=== PATIENT | male | born 1965 | race Native Hawaiian/Other Pacific Islander ===

== ENCOUNTER 2021-06-14 23:40 | Inpatient (IN) | payer MEDICAID ==
[~2021-06-14] VITALS: Ht 193 cm; Wt 185.0 kg
[2021-06-15] MEDS ORDERED: ACETAMINOPHEN 500 MG TAB PO ONE (00:15)
[2021-06-15] MEDS ORDERED: SODIUM CHLORIDE 0.9% 1,000 ML IV ONE ×3 (00:15→06:15)
[2021-06-15] MEDS ORDERED: SODIUM CHLORIDE 0.9% 500 ML IV ONE (00:15)
[2021-06-15] MEDS ORDERED: PIPERACILLIN-TAZO 4.5GM 100 ML IV ONE (00:15)
[2021-06-15 00:27] LABS: Basophils # (auto) 0.1 10 ^3/uL (0-0.2); Eosinophils # (auto) 0 10 ^3/uL (0-0.8); Hemoglobin 13.2 g/dL (13.5-17.5); Lymphocytes # (auto) 0.2 10 ^3/uL (0.4-5.4); Red Cell Distribution Width 14.5 % (11.8-14.3)
[2021-06-15 00:29] LABS: Eosinophils % (auto) 0.4 % (0.0-7.0); Hematocrit 38.8 % (41.0-53.0); Lymphocytes % (auto) 2.4 % (10.0-50.0); Mean Corpuscular Hemoglobin 26.2 pg (28.0-32.0); Mean Corpuscular Hgb Conc. 34.1 g/dL (32.0-36.0); Mean Corpuscular Volume 76.9 fL (80.0-100.0); Monocytes # (auto) 0.1 10 ^3/uL (0-1.3); Monocytes % (auto) 1.4 % (0.0-12.0); Neutrophils % (auto) 94.8 % (37.0-80.0); Red Blood Cells 5.05 10^6/uL (4.5-5.90); White Blood Cell 7.4 10^3/uL (4.4-10.8)
[2021-06-15] MEDS ORDERED: VANCOMYCIN 1GM/250ML 250 ML IV ONE ×3 (00:30)
[2021-06-15 00:45] LABS: Calcium 8.4 mg/dL (8.5-10.1)
[2021-06-15 00:48] LABS: Albumin 2.6 g/dL (3.4-5.0); BUN/Creatinine Ratio 11.7
[2021-06-15 00:53] LABS: Bilirubin, Total 0.6 mg/dL (0.2-1.0)
[2021-06-15 01:09] LABS: Lactic Acid w/Reflex 4.2 mmol/L (0.4-2.0)
[2021-06-15] MEDS ORDERED: HEPARIN SODIUM (PORCINE) 5000 UNITS/ML 1ML VIAL IV ONE ×2 (01:15→11:15)
[2021-06-15] MEDS ORDERED: HEPARIN DRIP/D5W 100UNITS/ML 250 ML IV SCH ×3 (01:15→11:15)
[2021-06-15 01:42] LABS: INR 1.07 (0.9-1.15)
[2021-06-15] MEDS: SODIUM CHLORIDE 0.9% 1,000 ML IV SCH ×3 (02:00→15:00)
[2021-06-15] MEDS ORDERED: VANCOMYCIN PER PHARMACY 0 MG IV SCH (02:15)
[2021-06-15] MEDS: CARVEDILOL 3.125 MG TAB PO SCH ×3 (02:30→22:00)
[2021-06-15] MEDS ORDERED: MORPHINE SULFATE INJECTION 2 MG/ML SYRG IV PRN (02:30)
[2021-06-15] MEDS ORDERED: CLOPIDOGREL 300 MG TAB PO ONE (02:30)
[2021-06-15] MEDS ORDERED: MORPHINE SULFATE 4 MG/ML SYR/VIAL IV PRN (02:30)
[2021-06-15] MEDS ORDERED: ATORVASTATIN 20 MG TAB PO ONE (02:30)
[2021-06-15] MEDS ORDERED: DEXTROSE (50%) 50ML SYRG IV PRN (02:30)
[2021-06-15] MEDS ORDERED: InsuLIN REG 1unit/0.01ml Soln (100units/ml) IV ONE ×2 (02:30→04:30)
[2021-06-15] MEDS ORDERED: NITROGLYCERIN 0.4 MG SL TAB SL PRN ×2 (02:30)
[2021-06-15 03:40] LABS: CRP High Sensitivity 13.1 mg/dL (< 0.3)
[2021-06-15] MEDS ORDERED: CEFEPIME 1 GM in SODIUM CHL 0.9% 50 ML IV SCH (06:00)
[2021-06-15] MEDS: INSULIN LANTUS (GLARGINE) 1 /0.01ml (100units/ml) SC SCH ×2 (06:30→22:00)
[2021-06-15] MEDS: InsuLIN REG 1unit/0.01ml Soln (100units/ml) SC SCH ×4 (07:00→22:00)
[2021-06-15] MEDS: ACCU-CHEK COMFORT CURVE STRIP VI SCH ×4 (07:00→22:00)
[2021-06-15 08:07] LABS: Eosinophils # (auto) 0 10 ^3/uL (0-0.8); Eosinophils % (auto) 0.1 % (0.0-7.0); Lymphocytes # (auto) 1.1 10 ^3/uL (0.4-5.4); Mean Corpuscular Hemoglobin 26.4 pg (28.0-32.0)
[2021-06-15 08:10] LABS: Basophils # (auto) 0 10 ^3/uL (0-0.2); Basophils % (auto) 0.1 % (0.0-2.0); Hematocrit 35.1 % (41.0-53.0); Hemoglobin 11.8 g/dL (13.5-17.5); Lymphocytes % (auto) 7.9 % (10.0-50.0); Mean Corpuscular Hgb Conc. 33.6 g/dL (32.0-36.0); Monocytes # (auto) 1.1 10 ^3/uL (0-1.3); Monocytes % (auto) 7.7 % (0.0-12.0); Neutrophils # (auto) 11.9 10 ^3/uL (1.6-8.6); Neutrophils % (auto) 84.2 % (37.0-80.0); Nucleated Red Blood Cells % 0.1 %; Red Blood Cells 4.46 10^6/uL (4.5-5.90); Red Cell Distribution Width 14.1 % (11.8-14.3); White Blood Cell 14.2 10^3/uL (4.4-10.8)
[2021-06-15 08:21] LABS: Mean Corpuscular Volume 78.6 fL (80.0-100.0); Potassium 3.6 mmol/L (3.5-5.1)
[2021-06-15 08:25] VITALS: BP 90/56
[2021-06-15 08:35] LABS: Calcium 7.9 mg/dL (8.5-10.1); Magnesium 2.3 mg/dL (1.6-2.6)
[2021-06-15] MEDS ORDERED: METF-370 PO (08:36)
[2021-06-15] MEDS: CEFEPIME 1 GM in SODIUM CHL 0.9% 50 ML IV SCH ×2 (09:00→17:38)
[2021-06-15] MEDS: ASPirin 81 mg TAB PO SCH (09:15)
[2021-06-15] MEDS: PANTOPRAZOLE 40 MG TAB PO SCH (09:15)
[2021-06-15] MEDS ORDERED: OPTISON 3ml Vial for INJ IV ONE (09:48)
[2021-06-15 10:30] VITALS: BP 100/57
[2021-06-15 10:59] LABS: INR 1.17 (0.9-1.15); Partial Thromboplastin Time 33.3 sec (23.6-33.0)
[2021-06-15] MEDS ORDERED: HEPARIN SODIUM (PORCINE) 5000 UNITS/ML 1ML VIAL ONE (11:42)
[2021-06-15 12:20] VITALS: BP 107/64
[2021-06-15] MEDS ORDERED: VANCOMYCIN 500 MG in D5W 5% 100 ML IV ONE (14:00)
[2021-06-15 16:35] VITALS: BP 108/51
[2021-06-15 17:46] LABS: INR 1.21 (0.9-1.15); Partial Thromboplastin Time 35.6 sec (23.6-33.0)
[2021-06-15] MEDS: HEPARIN DRIP/D5W 100UNITS/ML 250 ML IV SCH (18:14)
[2021-06-15 21:56] VITALS: BP 95/50
[2021-06-15] MEDS: ATORVASTATIN 20 MG TAB PO SCH (22:00)
[2021-06-16] VITALS (18 sets, daily range): BP systolic 105–132; BP diastolic 50–77
[2021-06-16] MEDS: CEFEPIME 1 GM in SODIUM CHL 0.9% 50 ML IV SCH ×3 (01:00→20:00)
[2021-06-16 01:47] LABS: INR 1.11 (0.9-1.15); Partial Thromboplastin Time 30.1 sec (23.6-33.0)
[2021-06-16] MEDS ORDERED: HEPARIN SODIUM (PORCINE) 5000 UNITS/ML 1ML VIAL ONE (02:19)
[2021-06-16] MEDS ORDERED: HEPARIN SODIUM (PORCINE) 5000 UNITS/ML 1ML VIAL IV ONE ×2 (02:30→17:45)
[2021-06-16 06:06] LABS: Basophils # (auto) 0.2 10 ^3/uL (0-0.2); Basophils % (auto) 2.2 % (0.0-2.0); Eosinophils # (auto) 0.1 10 ^3/uL (0-0.8); Eosinophils % (auto) 1.4 % (0.0-7.0); Hematocrit 35.3 % (41.0-53.0); Lymphocytes # (auto) 0.8 10 ^3/uL (0.4-5.4); Lymphocytes % (auto) 10.8 % (10.0-50.0); Mean Corpuscular Hemoglobin 26.2 pg (28.0-32.0); Monocytes # (auto) 0.5 10 ^3/uL (0-1.3); Monocytes % (auto) 6.3 % (0.0-12.0); Neutrophils # (auto) 6.1 10 ^3/uL (1.6-8.6); Neutrophils % (auto) 79.3 % (37.0-80.0); Red Blood Cells 4.58 10^6/uL (4.5-5.90); Red Cell Distribution Width 14.2 % (11.8-14.3); White Blood Cell 7.7 10^3/uL (4.4-10.8)
[2021-06-16] MEDS: ACCU-CHEK COMFORT CURVE STRIP VI SCH ×4 (06:38→21:27)
[2021-06-16 06:39] LABS: Potassium 3.5 mmol/L (3.5-5.1)
[2021-06-16] MEDS: InsuLIN REG 1unit/0.01ml Soln (100units/ml) SC SCH ×4 (06:39→21:20)
[2021-06-16 06:43] LABS: BUN/Creatinine Ratio 20.7; Calcium 8.1 mg/dL (8.5-10.1); Magnesium 2.3 mg/dL (1.6-2.6)
[2021-06-16 07:24] LABS: INR 1.07 (0.9-1.15); Partial Thromboplastin Time 35.3 sec (23.6-33.0)
[2021-06-16] MEDS: SODIUM CHLORIDE 0.9% 1,000 ML IV SCH ×2 (08:30→19:11)
[2021-06-16] MEDS: PANTOPRAZOLE 40 MG TAB PO SCH (09:42)
[2021-06-16] MEDS: INSULIN LANTUS (GLARGINE) 1 /0.01ml (100units/ml) SC SCH ×2 (09:43→21:20)
[2021-06-16] MEDS: ASPirin 81 mg TAB PO SCH (09:45)
[2021-06-16] MEDS: CARVEDILOL 3.125 MG TAB PO SCH ×2 (09:45→21:27)
[2021-06-16] MEDS: CLOPIDOGREL BISULFATE 75 MG TAB PO SCH (09:46)
[2021-06-16] MEDS ORDERED: VANCOMYCIN 1GM/250ML 250 ML IV SCH (10:00)
[2021-06-16] MEDS: HEPARIN DRIP/D5W 100UNITS/ML 250 ML IV SCH ×2 (14:35→18:40)
[2021-06-16 15:22] LABS: INR 1.04 (0.9-1.15); Partial Thromboplastin Time 35.4 sec (23.6-33.0)
[2021-06-16] MEDS ORDERED: HEPARIN DRIP/D5W 100UNITS/ML 250 ML IV SCH (16:45)
[2021-06-16] MEDS: ATORVASTATIN 20 MG TAB PO SCH (21:27)
[2021-06-16] MEDS: ACETAMINOPHEN 325 MG TAB PO PRN (23:13)
[2021-06-17] VITALS (17 sets, daily range): BP systolic 92–122; BP diastolic 37–70
[2021-06-17] MEDS ORDERED: PHENYLEPHRINE IV 250 ML IV SCH
[2021-06-17] MEDS ORDERED: VANCOMYCIN 1GM/250ML 250 ML IV SCH
[2021-06-17] MEDS ORDERED: VASOPRESSIN 50 UNITS in D5W 5% 247.5 ML IV SCH ×2
[2021-06-17] MEDS: CEFEPIME 1 GM in SODIUM CHL 0.9% 50 ML IV SCH ×4 (00:09→20:40)
[2021-06-17 01:07] LABS: Basophils # (auto) 0 10 ^3/uL (0-0.2); Eosinophils # (auto) 0 10 ^3/uL (0-0.8); Eosinophils % (auto) 0.4 % (0.0-7.0); Hematocrit 37.5 % (41.0-53.0); Lymphocytes # (auto) 1.1 10 ^3/uL (0.4-5.4); Monocytes # (auto) 0.6 10 ^3/uL (0-1.3); Neutrophils # (auto) 7.6 10 ^3/uL (1.6-8.6); Neutrophils % (auto) 81.2 % (37.0-80.0); Red Blood Cells 4.83 10^6/uL (4.5-5.90)
[2021-06-17 01:08] LABS: Basophils % (auto) 0.4 % (0.0-2.0); Hemoglobin 12.6 g/dL (13.5-17.5); Lymphocytes % (auto) 11.7 % (10.0-50.0); Mean Corpuscular Hemoglobin 26.1 pg (28.0-32.0); Mean Corpuscular Hgb Conc. 33.6 g/dL (32.0-36.0); Mean Corpuscular Volume 77.7 fL (80.0-100.0); Monocytes % (auto) 6.3 % (0.0-12.0); Red Cell Distribution Width 14.5 % (11.8-14.3); White Blood Cell 9.4 10^3/uL (4.4-10.8)
[2021-06-17 01:23] LABS: INR 1.07 (0.9-1.15); Partial Thromboplastin Time 40.1 sec (23.6-33.0)
[2021-06-17] MEDS: HEPARIN DRIP/D5W 100UNITS/ML 250 ML IV SCH ×3 (01:38→19:23)
[2021-06-17] MEDS: SODIUM CHLORIDE 0.9% 1,000 ML IV SCH ×3 (04:24→20:40)
[2021-06-17] MEDS: ACCU-CHEK COMFORT CURVE STRIP VI SCH ×4 (06:23→21:50)
[2021-06-17] MEDS: InsuLIN REG 1unit/0.01ml Soln (100units/ml) SC SCH ×4 (06:23→22:00)
[2021-06-17 07:40] LABS: Albumin 1.9 g/dL (3.4-5.0); BUN/Creatinine Ratio 15.8; Calcium 7.8 mg/dL (8.5-10.1); Magnesium 2.2 mg/dL (1.6-2.6); Potassium 3.4 mmol/L (3.5-5.1)
[2021-06-17 07:43] LABS: Bilirubin, Total 0.4 mg/dL (0.2-1.0); Total Protein 6.3 g/dL (6.4-8.2)
[2021-06-17] MEDS: ASPirin 81 mg TAB PO SCH (09:50)
[2021-06-17] MEDS: CARVEDILOL 3.125 MG TAB PO SCH ×2 (09:52→21:50)
[2021-06-17] MEDS: CLOPIDOGREL BISULFATE 75 MG TAB PO SCH (09:52)
[2021-06-17] MEDS: PANTOPRAZOLE 40 MG TAB PO SCH (09:53)
[2021-06-17 10:46] LABS: INR 1.08 (0.9-1.15); Partial Thromboplastin Time 37.6 sec (23.6-33.0)
[2021-06-17] MEDS: INSULIN LANTUS (GLARGINE) 1 /0.01ml (100units/ml) SC SCH ×2 (11:42→22:00)
[2021-06-17 19:15] LABS: INR 1.1 (0.9-1.15); Partial Thromboplastin Time 43.1 sec (23.6-33.0)
[2021-06-17] MEDS: ATORVASTATIN 20 MG TAB PO SCH (21:50)
[2021-06-18] VITALS (17 sets, daily range): BP systolic 85–133; BP diastolic 44–68
[2021-06-18 02:28] LABS: White Blood Cell 8.9 10^3/uL (4.4-10.8)
[2021-06-18 02:29] LABS: Albumin 1.9 g/dL (3.4-5.0); BUN/Creatinine Ratio 15.5; Calcium 7.8 mg/dL (8.5-10.1); Potassium 3.3 mmol/L (3.5-5.1)
[2021-06-18 02:32] LABS: Bilirubin, Total 0.4 mg/dL (0.2-1.0); Total Protein 6.3 g/dL (6.4-8.2)
[2021-06-18 02:37] LABS: Basophils # (auto) 0.1 10 ^3/uL (0-0.2); Basophils % (auto) 0.7 % (0.0-2.0); Eosinophils # (auto) 0.1 10 ^3/uL (0-0.8); Eosinophils % (auto) 1.1 % (0.0-7.0); Hematocrit 34.6 % (41.0-53.0); Lymphocytes # (auto) 1.6 10 ^3/uL (0.4-5.4); Lymphocytes % (auto) 18.4 % (10.0-50.0); Mean Corpuscular Hemoglobin 26.8 pg (28.0-32.0); Mean Corpuscular Hgb Conc. 34.7 g/dL (32.0-36.0); Mean Corpuscular Volume 77.3 fL (80.0-100.0); Monocytes # (auto) 0.7 10 ^3/uL (0-1.3); Monocytes % (auto) 7.3 % (0.0-12.0); Neutrophils # (auto) 6.5 10 ^3/uL (1.6-8.6); Neutrophils % (auto) 72.5 % (37.0-80.0); Nucleated Red Blood Cells % 0.1 %; Red Blood Cells 4.48 10^6/uL (4.5-5.90); Red Cell Distribution Width 14.5 % (11.8-14.3)
[2021-06-18 02:47] LABS: INR 1.08 (0.9-1.15); Partial Thromboplastin Time 47.3 sec (23.6-33.0)
[2021-06-18] MEDS: HEPARIN DRIP/D5W 100UNITS/ML 250 ML IV SCH ×3 (03:19→21:08)
[2021-06-18] MEDS: CEFEPIME 1 GM in SODIUM CHL 0.9% 50 ML IV SCH (03:22)
[2021-06-18] MEDS: InsuLIN REG 1unit/0.01ml Soln (100units/ml) SC SCH ×4 (06:44→22:23)
[2021-06-18] MEDS: ACCU-CHEK COMFORT CURVE STRIP VI SCH ×4 (06:44→22:25)
[2021-06-18 09:20] LABS: INR 1.09 (0.9-1.15); Partial Thromboplastin Time 47.9 sec (23.6-33.0)
[2021-06-18] MEDS: CLOPIDOGREL BISULFATE 75 MG TAB PO SCH (09:51)
[2021-06-18] MEDS ORDERED: LOSA-69 PO (09:58)
[2021-06-18] MEDS ORDERED: METF-370 PO (09:58)
[2021-06-18] MEDS: INSULIN LANTUS (GLARGINE) 1 /0.01ml (100units/ml) SC SCH ×2 (10:00→22:25)
[2021-06-18] MEDS: PANTOPRAZOLE 40 MG TAB PO SCH (10:14)
[2021-06-18] MEDS: CHOLECALCIFEROL (VITD3) 2,000 UNIT CAP/TAB PO SCH (10:15)
[2021-06-18] MEDS: ASCORBIC ACID 500 MG TAB PO SCH ×2 (10:15→21:56)
[2021-06-18] MEDS: ASPirin 81 mg TAB PO SCH (10:16)
[2021-06-18] MEDS: ZINC SULFATE 220mg CAP or TAB PO SCH (10:16)
[2021-06-18] MEDS: CARVEDILOL 3.125 MG TAB PO SCH ×2 (10:18→21:56)
[2021-06-18] MEDS: ACETAMINOPHEN 325 MG TAB PO PRN ×2 (10:20→22:00)
[2021-06-18] MEDS: AMPICILLIN SOD 2GM INJ 2 GM in SODIUM CHL 0.9% 100 ML IV SCH ×3 (12:00→23:34)
[2021-06-18] MEDS: SODIUM CHLORIDE 0.9% 1,000 ML IV SCH ×2 (17:21→20:36)
[2021-06-18 17:34] LABS: INR 1.11 (0.9-1.15); Partial Thromboplastin Time 48.9 sec (23.6-33.0)
[2021-06-18] MEDS ORDERED: LEVALBUTEROL HCL 1.25 MG/3 ML NEB ONE (19:00)
[2021-06-18] MEDS ORDERED: IPRATROPIUM BROM 0.5 MG/2.5ML INH SOL ONE (19:00)
[2021-06-18] MEDS: VANCOMYCIN 1GM/250ML 250 ML IV SCH (19:00)
[2021-06-18] MEDS: ATORVASTATIN 20 MG TAB PO SCH (21:56)
[2021-06-18] MEDS: MUPIROCIN 2% OINT 15gm or 22gm TOP SCH (22:00)
[2021-06-19] VITALS (11 sets, daily range): BP systolic 76–114; BP diastolic 31–70
[2021-06-19] MEDS ORDERED: ALBUMIN 5% 250 ML IV ONE (00:45)
[2021-06-19] MEDS: VANCOMYCIN 1GM/250ML 250 ML IV SCH (00:47)
[2021-06-19 03:34] LABS: Basophils # (auto) 0.1 10 ^3/uL (0-0.2); Basophils % (auto) 0.7 % (0.0-2.0); Eosinophils # (auto) 0.1 10 ^3/uL (0-0.8); Eosinophils % (auto) 0.6 % (0.0-7.0); Hematocrit 33.7 % (41.0-53.0); Hemoglobin 11.5 g/dL (13.5-17.5); Lymphocytes # (auto) 1.5 10 ^3/uL (0.4-5.4); Mean Corpuscular Hemoglobin 26.2 pg (28.0-32.0); Mean Corpuscular Hgb Conc. 34.3 g/dL (32.0-36.0); Mean Corpuscular Volume 76.4 fL (80.0-100.0); Monocytes # (auto) 0.9 10 ^3/uL (0-1.3); Neutrophils % (auto) 79.7 % (37.0-80.0); Nucleated Red Blood Cells % 0.1 %; Red Blood Cells 4.41 10^6/uL (4.5-5.90); Red Cell Distribution Width 14.2 % (11.8-14.3); White Blood Cell 12.6 10^3/uL (4.4-10.8)
[2021-06-19 03:48] LABS: Potassium 3.1 mmol/L (3.5-5.1)
[2021-06-19 03:49] LABS: INR 1.13 (0.9-1.15); Partial Thromboplastin Time 58.1 sec (23.6-33.0)
[2021-06-19 03:53] LABS: Albumin 1.9 g/dL (3.4-5.0); Calcium 7.6 mg/dL (8.5-10.1)
[2021-06-19 03:59] LABS: Bilirubin, Total 0.4 mg/dL (0.2-1.0); Total Protein 6.3 g/dL (6.4-8.2)
[2021-06-19] MEDS: HEPARIN DRIP/D5W 100UNITS/ML 250 ML IV SCH (04:28)
[2021-06-19] MEDS: AMPICILLIN SOD 2GM INJ 2 GM in SODIUM CHL 0.9% 100 ML IV SCH (05:43)
[2021-06-19] MEDS: InsuLIN REG 1unit/0.01ml Soln (100units/ml) SC SCH (05:44)
[2021-06-19] MEDS: SODIUM CHLORIDE 0.9% 1,000 ML IV SCH (05:44)
[2021-06-19] MEDS: ACCU-CHEK COMFORT CURVE STRIP VI SCH (05:44)
[2021-06-19] MEDS: ZINC SULFATE 220mg CAP or TAB PO SCH (09:08)
[2021-06-19] MEDS: ASPirin 81 mg TAB PO SCH (09:08)
[2021-06-19] MEDS: CLOPIDOGREL BISULFATE 75 MG TAB PO SCH (09:09)
[2021-06-19] MEDS: CARVEDILOL 3.125 MG TAB PO SCH (09:09)
[2021-06-19] MEDS: CHOLECALCIFEROL (VITD3) 2,000 UNIT CAP/TAB PO SCH (09:10)
[2021-06-19] MEDS: ASCORBIC ACID 500 MG TAB PO SCH (09:10)
[2021-06-19] MEDS: PANTOPRAZOLE 40 MG TAB PO SCH (09:10)
[2021-06-19] MEDS: INSULIN LANTUS (GLARGINE) 1 /0.01ml (100units/ml) SC SCH (09:12)
[2021-06-19] MEDS: MUPIROCIN 2% OINT 15gm or 22gm TOP SCH (09:18)
[2021-06-19 09:55] LABS: INR 1.12 (0.9-1.15); Partial Thromboplastin Time 55.5 sec (23.6-33.0)
== END 2021-06-19 15:23 | disposition short-term general hospital (02) | DRG 720 ==
LOC: ER 23:40 → EDBD 23:40 → TELE 06-15 02:18 → TELE-WESTW 06-15 08:25 → DOU IN ICU 06-16 04:28
PROVIDERS: ADMIT Internal Medicine; ATTEND Family Medicine
DX: A40.9 Streptococcal sepsis, unspecified (principal); J96.01 Acute respiratory failure with hypoxia; R65.21 Severe sepsis with septic shock; I21.4 Non-ST elevation (NSTEMI) myocardial infarction; U07.1 COVID-19; E11.621 Type 2 diabetes mellitus with foot ulcer; L97.529 Non-pressure chronic ulcer of other part of left foot with unspecified severity; N17.9 Acute kidney failure, unspecified; M86.10 Other acute osteomyelitis, unspecified site; E11.69 Type 2 diabetes mellitus with other specified complication; E66.01 Morbid (severe) obesity due to excess calories; E78.5 Hyperlipidemia, unspecified; E11.65 Type 2 diabetes mellitus with hyperglycemia; I10 Essential (primary) hypertension; E11.40 Type 2 diabetes mellitus with diabetic neuropathy, unspecified; E11.21 Type 2 diabetes mellitus with diabetic nephropathy; Z68.43 Body mass index [BMI] 50.0-59.9, adult; Z79.84 Long term (current) use of oral hypoglycemic drugs
CPT/HCPCS: 36415; 71045; 73620; 80048; 80053; 80061; 80202; 82962; 83036; 83605; 83735; 83880; 84484; 85025; 85610; 85652; 85730; 86141; 87040; 87077; 87081; 87186; 87205; 93005; 93306; 96361; 96365; 96366; 96368; 96375; 96376; G0378; J1815; J2543; J7060; Q9956